=== PATIENT | male | born 2000 | race Caucasian/White ===

== ENCOUNTER 2022-05-09 02:39 | Emergency (ER) | payer OTHER ==
[~2022-05-09] VITALS: Ht 172.7 cm; Wt 70.3 kg
--- NOTE | 2022-05-09 03:07 | NUR ---
BIBS FOR C/O SORETHROAT AND SWOLLEN TONSILS X 2 DAYS. PT IS A/O X 4, AMBULATORY. VSS. AWAITING MD ORDER.
[2022-05-09] MEDS ORDERED: PENI500T PO (03:15)
[2022-05-09] MEDS ORDERED: BENZ1LOZ58 PO (03:15)
[2022-05-09] MEDS ORDERED: PENICILLIN G BENZATHINE 2.4 MMU/4 ML ML IM ONE ×2 (03:21→03:30)
[2022-05-09] MEDS ORDERED: DEXAMETHASONE SOD PHOSPHATE 4 MG/ML VIAL IM ONE (03:30)
[2022-05-09 03:35] VITALS: BP 107/72
== END 2022-05-09 03:36 | disposition home or self-care (01) ==
LOC: ER 02:39
DX: J02.9 Acute pharyngitis, unspecified (principal); Z79.899 Other long term (current) drug therapy
CPT/HCPCS: 99284; 96372; J0558